=== PATIENT | male | born 1975 | race Caucasian/White ===

== ENCOUNTER 2019-12-16 21:48 | Emergency (ER) | payer MEDICARE, OTHER ==
[2019-12-16] MEDS ORDERED: KETOROLAC TROMETHAMINE 60 MG/2 ML VIAL ONE (22:52)
== END 2019-12-16 23:11 | disposition home or self-care (01) ==
LOC: EDH 21:48
DX: G89.29 Other chronic pain (principal); M54.5 Low back pain; Z72.0 Tobacco use
CPT/HCPCS: 96372; J1885

== ENCOUNTER 2019-12-17 20:32 | Emergency (ER) | payer OTHER | END 2019-12-17 20:58 | disposition home or self-care (01) | LOC: EDH 20:32 | DX: G89.29 Other chronic pain (principal); M54.5 Low back pain; Z72.0 Tobacco use | CPT/HCPCS: 99281 ==

== ENCOUNTER 2019-12-20 15:27 | Emergency (ER) | payer SELFPAY | END 2019-12-20 16:26 | disposition home or self-care (01) | LOC: EDH 15:27 | DX: G89.29 Other chronic pain (principal); M54.5 Low back pain | CPT/HCPCS: 99281 ==

== ENCOUNTER 2019-12-25 16:12 | Emergency (ER) | payer SELFPAY ==
[2019-12-25 17:21] LABS: APPEARANCE,URINE Clear (CLEAR); BILIRUBIN,URINE Small (NEGATIVE); COLOR,URINE Dark Yellow (YELLOW); GLUCOSE, URINE (UA) Negative (NEGATIVE); KETONES,URINE Trace mg/dL (NEGATIVE); LEUKOCYTE ESTERASE ,URINE Negative (NEGATIVE); NITRATE,URINE Negative (NEGATIVE); OCCULT BLOOD,URINE Negative (NEGATIVE); PROTEIN,URINE Trace mg/dL (NEGATIVE)
[2019-12-25 17:29] LABS: AMPHET/METH SCREEN,URINE NEGATIVE (NEGATIVE); BARBITURATE SCREEN, URINE NEGATIVE (NEGATIVE); BENZODIAZEPINES SCREEN,URINE NEGATIVE (NEGATIVE); CANNABINOID SCREEN,URINE NEGATIVE (NEGATIVE); COCAINE SCREEN,URINE NEGATIVE (NEGATIVE); OPIATE SCREEN,URINE NEGATIVE (NEGATIVE); PHENCYCLIDINE SCREEN,URINE NEGATIVE (NEGATIVE)
[2019-12-25 17:34] LABS: BACTERIA,URINE Few /HPF (None Seen); MUCUS,URINE Few LPF (None Seen); RBC,URINE 0-1 /HPF (0-1); SQUAMOUS EPITHELIAL CELL,UR Few /HPF (0-2); WBC,URINE 0-1 /HPF (0-1)
== END 2019-12-25 17:41 | disposition left against medical advice (07) ==
LOC: EDH 16:12
DX: R53.83 Other fatigue (principal); R53.1 Weakness
CPT/HCPCS: 80305; 81001